=== PATIENT | male | born 1965 | race Caucasian/White ===

== ENCOUNTER 2019-05-07 17:47 | Emergency (ER) | payer BC, OTHER ==
[~2019-05-07] VITALS: Ht 172.7 cm; Wt 79.4 kg
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
[2019-05-07] MEDS ORDERED: HYDROcodone/APAP 5/325MG 1 TAB TABLET PO ONE (18:30)
[2019-05-07] MEDS ORDERED: ORPHENADRINE CITRATE 60 MG/2 ML VIAL. IM ONE (18:30)
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
[2019-05-07] MEDS ORDERED: HYDR-3164 PO (19:55)
[2019-05-07] MEDS ORDERED: IBUP-1007 PO (19:55)
[2019-05-07] MEDS ORDERED: ORPH100T PO (19:55)
[2019-05-07 20:03] VITALS: BP 163/101
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
== END 2019-05-07 20:03 | disposition home or self-care (01) ==
LOC: ER 17:47
DX: S16.1XXA Strain of muscle, fascia and tendon at neck level, initial encounter (principal); S39.012A Strain of muscle, fascia and tendon of lower back, initial encounter; S29.012A Strain of muscle and tendon of back wall of thorax, initial encounter; R42 Dizziness and giddiness; M25.571 Pain in right ankle and joints of right foot; M25.562 Pain in left knee; M25.561 Pain in right knee; Z90.89 Acquired absence of other organs; V43.52XA Car driver injured in collision with other type car in traffic accident, initial encounter; Y93.89 Activity, other specified; Y92.89 Other specified places as the place of occurrence of the external cause; Y99.8 Other external cause status
CPT/HCPCS: 70450; 71046; 72125; 72128; 72131; 73564; 73610; 96372; 99284; J2360

== ENCOUNTER 2019-07-29 11:33 | Emergency (ER) | payer OTHER ==
[~2019-07-29] VITALS: Ht 172.7 cm; Wt 79.4 kg
[~2019-07-29 11:33] MED LIST: HYDR-3164 PO; IBUP-1007 PO; ORPH100T PO
[2019-07-29 12:00] VITALS: BP 156/87
[2019-07-29] MEDS ORDERED: ORPHENADRINE CITRATE 60 MG/2 ML VIAL. IM ONE (12:15)
[2019-07-29] MEDS ORDERED: HYDROcodone/APAP 5/325MG 1 TAB TABLET PO ONE (12:15)
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
[2019-07-29] MEDS ORDERED: ORPH100T PO (12:59)
[2019-07-29] MEDS ORDERED: HYDR-3164 PO (12:59)
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
== END 2019-07-29 13:09 | disposition home or self-care (01) ==
LOC: ER 11:33
DX: S39.012A Strain of muscle, fascia and tendon of lower back, initial encounter (principal); S29.012A Strain of muscle and tendon of back wall of thorax, initial encounter; S16.1XXA Strain of muscle, fascia and tendon at neck level, initial encounter; I10 Essential (primary) hypertension; V43.42XA Person boarding or alighting a car injured in collision with other type car, initial encounter; Y93.89 Activity, other specified; Y92.488 Other paved roadways as the place of occurrence of the external cause; Y99.8 Other external cause status
CPT/HCPCS: 72040; 72072; 72100; 96372; 99284; J2360